=== PATIENT | female | born 2000 | race Hispanic/Latino ===

== ENCOUNTER 2020-09-18 12:55 | Emergency (ER) | payer MEDICAID ==
[2020-09-18 13:11] VITALS: BP 111/53
--- NOTE | 2020-09-18 14:25 | Emergency Department Report ---
ED Female HPI - General Chief complaint: Skin/Abscess/Foreign Body Stated complaint: STUCK TAMPON Time Seen by Provider: 09/18/20 14:14 Source: patient Mode of arrival: Ambulatory Limitations: No Limitations - History of Present Illness Initial comments: 19-year-old female presents to the emergency room concerned that she may still have a tampon in her vaginal area. Patient states she has not aware that she taken out her tampon. She started her menstrual period 2 days ago 09-16. Patient denies any fever chills or nausea no vomiting no pain. -: This morning Severity scale (0 -10): 0 Consistency: constant Improves with: none Are you Now?: No Associated Symptoms: denies: vaginal bleeding, abdominal pain, nausea/vomiting, fever/chills - Related Data Sexually active: No Allergies Allergy/AdvReac Type Severity Reaction Status Date / Time No Known Allergies Allergy Unverified 09/18/20 13:08 ED Review of Systems ROS: Stated complaint: STUCK TAMPON Other details as noted in HPI Comment: All other systems reviewed and negative ED Past Medical Hx - Past Medical History Previous Medical History?: No - Surgical History Past Surgical History?: No ED Physical Exam - General Limitations: No Limitations General appearance: alert, in no apparent distress - Head Head exam: Present: atraumatic, normocephalic - Eye Eye exam: Present: normal appearance - ENT ENT exam: Present: mucous membranes moist - Neck Neck exam: Present: normal inspection, full ROM - Respiratory Respiratory exam: Absent: accessory muscle use - GI/Abdominal GI/Abdominal exam: Present: soft. Absent: distended, tenderness - External exam: Present: normal external exam Speculum exam: Present: normal speculum exam, other (Appreciate IUD string) Bi-manual exam: Present: normal bi-manual exam - Extremities Exam Extremities exam: Present: normal inspection, full ROM - Neurological Exam Neurological exam: Present: alert, oriented X3, normal gait - Psychiatric Psychiatric exam: Present: normal affect, normal mood - Skin Skin exam: Present: warm, dry, intact, normal color. Absent: rash ED Course Vital Signs 09/18/20 13:10 Temperature 98.2 F Pulse Rate 77 Respiratory 18 Rate Blood Pressure 111/53 O2 Sat by Pulse 98 Oximetry ED Medical Decision Making - Medical Decision Making 19-year-old female presents to the emergency room concerned that she may still have a tampon in her vaginal area. Patient states she has not aware that she taken out her tampon. She started her menstrual period 2 days ago 2. Patient denies any fever chills or nausea no vomiting no pain. Critical care attestation.: If time is entered above; I have spent that time in minutes in the direct care of this critically ill patient, excluding procedure time. ED Disposition Clinical Impression: Normal exam Disposition: DC- TO HOME OR SELFCARE Is pt being admited?: No Does the pt Need Aspirin: No Condition: Stable Additional Instructions: Exam and ultrasound is negative for any foreign body in the vaginal area. IUD is in a satisfactory position in your uterus. I recommend to continue to follow-up with your [employer]. Forms: Work/School Release Form(ED)
--- NOTE | 2020-09-18 15:33 | Ultrasound Report ---
Pelvic Ultrasound HISTORY: Concern for Ms. placement of IUD and possible fb. TECHNIQUE: Grayscale and color imaging performed. COMPARISON: None FINDINGS: Transabdominal and endovaginal imaging was performed. Uterus measures 6.9 x 3.9 x 4.4 cm with endometrial echocomplex measuring 4 mm. IUD is positioned in the mid endometrial canal in satisfactory position. Both ovaries are unremarkable with multiple small follicles. No significant pelvic free fluid. IMPRESSION: Unremarkable exam. IUD in satisfactory position. Signer Name: Sina Platt MD Signed: 09/18/2020 3:29 PM Workstation Name: [id number]
== END 2020-09-18 15:44 | disposition home or self-care (01) ==
LOC: ED 12:55
DX: Z00.00 Encounter for general adult medical examination without abnormal findings (principal)
CPT/HCPCS: 76830; 76856; 99283